=== PATIENT | male | born 1955 | race Caucasian/White ===

== ENCOUNTER 2020-11-11 10:35 | Emergency (ER) | payer MEDICARE ==
[~2020-11-11] VITALS: Ht 182.9 cm; Wt 93.4 kg
--- NOTE | 2020-11-11 10:52 | NUR ---
PT CAME IN [place] CHEST PAIN THAT RADIATED INTO HIS JAW AND HIS BACK. HE WAS DRIVING DOWN THE ROAD WHEN THIS HAPPENED. IT WAS THE SECOND EPISODE TODAY. THE FIRST BEING THIS MORNING ON A MORNING WALK. PT REPROTS ITS THE 4TH-5TH TIME IT HAS HAPPENED THE LAST WEEK OR SO. PT RECIEVED 324 ASPIRIN BOTTOM IRONER. PT DENIES CP AT THE MOMENT. EKG COMPLETE. PT CONNECTED TO ALL MONITORS
[2020-11-11] MEDS ORDERED: ERYTHROMYCIN OPHTH 0.5%, 1GM LEFTEYE ONE (11:00)
[2020-11-11 11:28] LABS: BASOPHILS % (AUTO) 1 % (0-1); EOSINOPHILS % (AUTO) 2 % (1-7); LYMPHOCYTES % (AUTO) 20 % (22-44); MEAN CORPUSCULAR HGB CONC 33.9 g/dL (33.2-36.2); MEAN PLATELET VOLUME 8.8 fL (7.4-10.4); MONOCYTES % (AUTO) 8 % (2-9); NEUTROPHILS % (AUTO) 70 % (42-75); PLATELET COUNT 221 x10^3/uL (130-400); RED BLOOD COUNT 5.07 x10^6/uL (4.38-5.82); RED CELL DISTRIBUTION WIDTH 14.2 % (9.4-14.8)
[2020-11-11 11:38] LABS: ALANINE AMINOTRANSFERASE 22 U/L (12-78); ALBUMIN 3.5 g/dL (3.4-5.0); CALCIUM 8.7 mg/dL (8.5-10.1); CREATININE 0.95 mg/dL (0.7-1.3)
[2020-11-11 11:42] LABS: ALKALINE PHOSPHATASE 45 U/L (45-117); BILIRUBIN,TOTAL 0.7 mg/dL (0.2-1.0); TOTAL PROTEIN 7.1 g/dL (6.4-8.2); TROPONIN I < 0.015 ng/mL (0.000-0.045)
[2020-11-11 11:57] LABS: ANION GAP 4 mmol/L (5-15); CHLORIDE 108 mmol/L (98-107)
[2020-11-11] MEDS ORDERED: SODIUM CHLORIDE FLUSH 10ML SYR IVF ONE (12:00)
[2020-11-11 12:47] VITALS: BP 137/83
== END 2020-11-11 13:33 | disposition home or self-care (01) ==
LOC: ED 11:15
DX: R07.2 Precordial pain (principal); I10 Essential (primary) hypertension
CPT/HCPCS: 36415; 71045; 80053; 83880; 84484; 85025; 93005; 99285